=== PATIENT | female | born 1930 | race African-American/Black ===

== ENCOUNTER → 2016-10-27 | Outpatient (CLI) | payer MEDICARE, BC | END | disposition home or self-care (01) | LOC: MRI 12:52 | PROVIDERS: ATTEND Internal Medicine Critical Care Medicine | DX: M50.221 Other cervical disc displacement at C4-C5 level (principal); M51.26 Other intervertebral disc displacement, lumbar region; M47.896 Other spondylosis, lumbar region; M48.06 Spinal stenosis, lumbar region; M25.78 Osteophyte, vertebrae | CPT/HCPCS: 72141; 72148 ==

== ENCOUNTER → 2017-04-27 | Outpatient (CLI) | payer MEDICARE, BC ==
[~2017-04-27] MED LIST: BARIUM SULFATE 450ML ORAL SUSP ONE; IOHEXOL-300 100 ML BOTTLE ONE
== END | disposition home or self-care (01) ==
LOC: CT 08:27
PROVIDERS: ATTEND Internal Medicine Gastroenterology
DX: M47.896 Other spondylosis, lumbar region (principal); I51.7 Cardiomegaly
CPT/HCPCS: 74177; Q9967